=== PATIENT | male | born 1945 | race Caucasian/White ===

== ENCOUNTER 2017-10-14 05:39 | Day surgery (SDC) | payer OTHER ==
[~2017-10-14] VITALS: Ht 185.4 cm; Wt 99.8 kg
--- NOTE | ~2017-10-14 | O ---
[facility] [place] [address] OPERATIVE REPORT Name: KALEY HERMOSILLO Room #: 150-7 [facility]..#: [id number] Admission: 10/14/17 Attend Phys: Familia Pacheco MD Discharge: Date of : 43 Report #: [id number] THIS REPORT FOR: //name// CC: Alexandre Pacheco DATE OF SERVICE: 10/14/2017 MEAT MARKET MANAGER: None. PREOPERATIVE DIAGNOSIS: Bilateral upper lid ptosis with superior visual field defects both eyes. POSTOPERATIVE DIAGNOSIS: Bilateral upper lid ptosis with superior visual field defects both eyes. OPERATION PERFORMED: Bilateral upper lid functional ptosis repair. MEAT MARKET MANAGER: None. ANESTHESIA: Local with IV sedation. COMPLICATIONS: None. INDICATIONS FOR PROCEDURE: This patient has bilateral upper lid ptosis with superior visual field loss both eyes. Visual field testing demonstrates dense superior visual defects. Retesting with the upper lid elevated shows an improvement in visual field loss of over 30% and in excess of 12 degrees. The current procedure is being undertaken in order to improve the patient's visual function. Informed consent was obtained to include but not limited to the risk of loss of vision, bleeding, infection, scarring, failure to improve the problem and need for further surgery, such as adjustment of lid height. DESCRIPTION OF PROCEDURE: The patient was taken to the operating room, where 2% Xylocaine with epinephrine mixed with equal parts of 0.75% Marcaine with Wydase was administered transcutaneously to each upper lid. The patient was then prepped and draped in the usual sterile fashion. An upper lid crease incision was then made bilaterally and the dissection was carried down until the orbital septum was identified. The orbital septum was then cleared and the preaponeurotic fat identified. The levator aponeurosis was then disinserted from the anterior surface of the tarsal plate and dissected [address] [address] OPERATIVE REPORT Name: KALEY HERMOSILLO Room #: 150-7 [facility]#: [id number] Admission: 10/14/17 Attend Phys: Familia Pacheco MD Discharge: Date of : 44 Report #: [id number] free in the avascular Crockett's muscle plane. The aponeurosis was then advanced and reattached to the anterior surface of the tarsal plate with interrupted mattress 6-0 Novafil sutures on each side, adjusting for height and contour. The redundant aponeurosis was then amputated. The incision was then closed with multiple interrupted 6-0 chromic sutures that were used to recreate an upper lid crease. The skin was closed with a running 6-0 plain gut suture. The wound was then cleaned and dressed with ophthalmic antibiotic ointment followed by a Telfa pad. The patient was transported to the recovery area, having tolerated the procedure well with no anesthesia or operative complications being noted. By: 1440 1517 MD otis Castellano
[~2017-10-14 05:39] MED LIST: ALTACE10 M1 PO; ALTACE10 MG PO; ASPIR 8181 MG PO; ASPIRIN EC325 M1 PO; CARVEDILOL12.5 MG PO; COREG PO; COREG25 MG PO; LIPITOR80 MG PO
[2017-10-14 13:04] VITALS: BP 112/71
== END 2017-10-14 15:23 | disposition home or self-care (01) ==
LOC: OR 05:39 → TBA 05:39 → OR 07:59
DX: H02.403 Unspecified ptosis of bilateral eyelids (principal); H53.462 Homonymous bilateral field defects, left side; H53.461 Homonymous bilateral field defects, right side; I10 Essential (primary) hypertension; I21.3 ST elevation (STEMI) myocardial infarction of unspecified site; E78.5 Hyperlipidemia, unspecified; I44.7 Left bundle-branch block, unspecified; I25.10 Atherosclerotic heart disease of native coronary artery without angina pectoris; Z98.890 Other specified postprocedural states; I25.5 Ischemic cardiomyopathy; K21.9 Gastro-esophageal reflux disease without esophagitis
CPT/HCPCS: 50010; 50101; 50386; 50398; 51636; 56528; 56531; 62110; 62850; 70005

== ENCOUNTER 2018-02-20 05:43 | Day surgery (SDC) | payer OTHER ==
[~2018-02-20] VITALS: Ht 182.9 cm; Wt 102.1 kg
--- NOTE | ~2018-02-20 | O ---
[facility] [place] [address] OPERATIVE REPORT Name: KALEY HERMOSILLO Room #: 150-14 [facility]#: [id number] Admission: 02/20/18 Attend Phys: Familia Pacheco MD Discharge: Date of : 43 Report #: [id number] THIS REPORT FOR: //name// CC: TIM Pacheco DATE OF SERVICE: 02/20/2018 SURGEON: Familia Pacheco MD INTAKE NURSE: None. PREOPERATIVE DIAGNOSIS: Bilateral upper lid dermatochalasia with superior visual field defect. POSTOPERATIVE DIAGNOSIS: Bilateral upper lid dermatochalasia with superior visual field defect. OPERATION PERFORMED: Bilateral upper lid functional blepharoplasty. ANESTHESIA: Local with IV sedation. COMPLICATIONS: None. INDICATIONS FOR SURGERY: This patient has acquired upper lid dermatochalasia with superior visual field loss both eyes because of excessive upper lid tissues to include skin and fat. Visual field testing demonstrates dense superior visual defects. Retesting with the upper lid elevated shows an improvement in visual field loss of over 30% and in excess of 12 degrees. The current procedures are undertaken in order to improve the patient's visual function. Informed consent was obtained to include but not limited to the loss of vision, bleeding, infection, scarring, failure to improve the problem and need for further surgery. DESCRIPTION OF OPERATION: The patient was taken to the operating room, where 2% Xylocaine with epinephrine mixed with equal parts of 0.75% Marcaine with Wydase was administered transcutaneously to each upper lid. The patient was then prepped and draped in the usual sterile fashion and a skin-marking pen was then utilized to outline an upper lid crease that was symmetrical on each side. Graefe forceps were then used to quantitate the redundant upper lid skin and it was similarly outlined. The incisions were then made with Saurabh scissors and a skin-muscle flap removed from each side with high-temp cautery. Hemostasis was achieved with the monopolar cautery as it was throughout the case. The [address] [address] OPERATIVE REPORT Name: HERMOSILLOKALEY Room #: 150-[address] [place] [address]..#: [id number] Admission: 02/20/18 Attend Phys: Familia Pacheco MD Discharge: Date of : 44 Report #: [id number] orbital septum was then identified and the central and medial fat pads were inspected. The redundant soft tissue was then sculpted with the monopolar cautery. The upper lid crease was then reformed with tightening of the pretarsal orbicularis muscle. The upper lid crease was then further reformed with multiple interrupted 6-0 chromic sutures. The skin was then closed with a running 6-0 plain gut suture. The wound was then cleaned and dressed with ophthalmic antibiotic ointment and a nonstick dressing. The patient was transported to the recovery area, where cold compresses were applied, having tolerated the procedure well with no anesthetic or operative complications being noted. By: 1045 1146 Familia Pacheco MD /nt
[2018-02-20 08:21] VITALS: BP 118/68
== END 2018-02-20 11:30 | disposition home or self-care (01) ==
LOC: TBA 05:43 → OR 05:43
DX: H02.834 Dermatochalasis of left upper eyelid (principal); H02.831 Dermatochalasis of right upper eyelid; H53.462 Homonymous bilateral field defects, left side; H53.461 Homonymous bilateral field defects, right side; I10 Essential (primary) hypertension; I25.10 Atherosclerotic heart disease of native coronary artery without angina pectoris; I25.5 Ischemic cardiomyopathy; I25.2 Old myocardial infarction; E78.5 Hyperlipidemia, unspecified; K21.9 Gastro-esophageal reflux disease without esophagitis; Z96.653 Presence of artificial knee joint, bilateral; Z79.899 Other long term (current) drug therapy; Z98.890 Other specified postprocedural states; Z79.82 Long term (current) use of aspirin
CPT/HCPCS: 50010; 50101; 50386; 50398; 51636; 56531; 70005

== ENCOUNTER → 2018-09-24 | Outpatient (CLI) | payer OTHER | LOC: MRI 09-23 16:12 → SPEECH 08:37 → MRI 08:37 | DX: G31.9 Degenerative disease of nervous system, unspecified (principal); R13.19 Other dysphagia; R29.6 Repeated falls; Z85.72 Personal history of non-Hodgkin lymphomas ==

== ENCOUNTER → 2018-10-09 | Outpatient (CLI) | payer OTHER | LOC: CAT 10:05 | DX: J34.89 Other specified disorders of nose and nasal sinuses (principal); J32.9 Chronic sinusitis, unspecified; H04.552 Acquired stenosis of left nasolacrimal duct ==

== ENCOUNTER → 2018-11-18 | Outpatient (CLI) | payer OTHER ==
[2018-11-18 11:41] LABS: CREATININE 1.1 mg/dL (0.7-1.3)
== END ==
LOC: LAB 10:53
PROVIDERS: Family Medicine
DX: J32.0 Chronic maxillary sinusitis (principal); J32.1 Chronic frontal sinusitis; Z85.72 Personal history of non-Hodgkin lymphomas

== ENCOUNTER 2019-08-24 16:32 | Inpatient (IN) | payer OTHER ==
[~2019-08-24] VITALS: Ht 185.4 cm; Wt 90.7 kg
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
[~2019-08-24 16:32] MED LIST changes: -ASPIRIN EC325 MG PO; -KLOR-CON 10 ER10 MEQ PO; -LEVO-T100 MCG PO; -METFORMIN HCL500 MG PO; -PERCOCET PO
[2019-08-24 16:40] VITALS: BP 110/62
[2019-08-24] MEDS ORDERED: ASPIRIN EC325 MG PO (16:46)
[2019-08-24] MEDS ORDERED: LEVO-T100 MCG PO (16:47)
[2019-08-24] MEDS ORDERED: METFORMIN HCL500 MG PO (16:47)
[2019-08-24] MEDS ORDERED: KLOR-CON 10 ER10 MEQ PO (16:47)
[2019-08-24 16:55] LABS: ABSOLUTE NEUTROPHILS 5.5 thou/uL (1.4-8.2); BASOPHILS 0.6 % (0.0-2.0); EOSINOPHILS 2.1 % (0.0-3.0); HEMATOCRIT 41.9 % (42.0-52.0); HEMOGLOBIN 14.1 gm/dL (14.0-18.0); LYMPHOCYTES 9.9 % (24.0-44.0); MCH 30.7 pg (26.0-34.0); MCHC 33.7 g/dL (28.0-37.0); MCV 91.3 fL (80.0-100.0); MONOCYTES 7.8 % (1.0-8.0); PLATELET COUNT 232 thou/uL (150-400); POLYS 79.6 % (36.0-66.0); RBC 4.59 mil/uL (4.50-6.00); RDW 14.6 % (10.5-14.5); WBC 6.9 thou/uL (4.0-11.0)
[2019-08-24 17:03] LABS: CALCIUM 8.9 mg/dL (8.5-10.1); CREATININE 1.1 mg/dL (0.7-1.3); POTASSIUM 4.4 mmol/L (3.5-5.1)
[2019-08-24 17:09] LABS: PROTIME 10.7 Seconds (9.3-11.4); TOTAL BILIRUBIN 1.2 mg/dL (0.2-1.0); TOTAL PROTEIN 7.4 g/dL (6.4-8.2)
[2019-08-24 17:11] LABS: URINE BILIRUBIN NEGATIVE (Negative); URINE BLOOD TRACE (Negative); URINE CLARITY CLEAR; URINE COLOR YELLOW; URINE GLUCOSE-RANDOM* NEGATIVE (Negative); URINE KETONES NEGATIVE (Negative); URINE LEUKOCYTES-REFLEX NEGATIVE (Negative); URINE NITRITE-REFLEX NEGATIVE (Negative); URINE PROTEIN (DIPSTICK) NEGATIVE (Negative); URINE SPECIFIC GRAVITY 1.025 (1.005-1.035)
[2019-08-24 17:34] VITALS: BP 110/62
--- NOTE | 2019-08-24 18:39 | NUR ---
SPOKE WITH DR. HOWARD WHO GAVE ORDER FOR PAIN MEDICATION AND REGULAR DIET
[2019-08-24 19:15] VITALS: BP 110/55
[2019-08-24 19:24] VITALS: BP 125/63
[2019-08-24 19:47] VITALS: BP 112/60
[2019-08-25] VITALS (7 sets, daily range): BP systolic 94–111; BP diastolic 47–65
--- NOTE | 2019-08-25 01:16 | NUR ---
PT ADMIT FROM ED UNDER DR HOWARD CARE.PT ARRIVED TO UNIT VIA CART ACCOMPANIED BY THE STAFF.PT A/OX4 W/O ACUTE DISTRESS.DENIES PAIN OR ANY DISCOMFORT.ORIENTED TO RM AND UNIT ACTIVITIES.VSS.ADMISSION ASSESSMENT DOCUMENTED.DR HOWARD NOTIFIED,ORDERS GIVEN.MEDS RECONCILLED.SR/BBB/PVCS ON MONITOR.RA W/O RESP DISTRESS.UP INDEPENDENTLY W/STEADY GAIT.POC IS TO CONTINUE WITH MRI TODAY.WILL CONT TO MONITOR PER POC.
--- NOTE | 2019-08-25 07:41 | NUR ---
ASSESSMENT DOCUMENTED.PT RESTED WELL THROUGH THE NOC.C/O PAIN TO LOWER BACK AND RIBS THAT WAS CONTROLLED WITH PAIN MEDS.NEURO CONSULTED.PT DENIES ANY NEEDS AT THIS TIME.WILL CONT TO MONITOR.
--- NOTE | 2019-08-25 08:37 | EKG ---
[facility] [place] [address] ELECTROCARDIOGRAM REPORT Name: KALEY HERMOSILLO Room #: 217-P ADM IN M.R.#: [id number] Admission: 08/24/19 Attend Phys: Alexandre Araujo MD Discharge: Date of : 44 Report #: [id number] THIS REPORT FOR: cc: Alexandre Araujo MD, Neal A. MD Lundgren, Craig H. MD [facility] ~ THIS REPORT FOR: //name// [facility] ED Test Date: 2019-08-24 Test Time: 16:59:34 Pat Name: KALEY HERMOSILLO Department: Room: 217 Gender: M Maintenance Clerk: jose e : 1945 Requested By: Areli Roche Order Number: [id number] MD: Rodney Mcdonnell Measurements Intervals [place] Rate: 84 P: -9 TN: 237 QRS: -31 QRSD: 162 T: 140 QT: 424 QTc: 502 Interpretive Statements Sinus rhythm Paired ventricular premature complexes Prolonged TN interval Left bundle branch block Compared to ECG 04/24/2011 11:19:00 Ventricular premature complex(es) now present Electronically Signed On 08-25-2019 8:35:43 CDT by Rodney Mcdonnell [email or web address] <ELECTRONICALLY SIGNED> By: Rodney Mcdonnell MD, [facility] 08/25/19 0835 1659 1659 Rodney Mcdonnell MD, FAC /EPI
--- NOTE | 2019-08-25 13:31 | 2DMMODE ---
[facility] [address] [facility] [place] [address] 2 D/M-MODE ECHOCARDIOGRAM Name: KALEY HERMOSILLO Room #: 217-P ADM IN M.R.#: [id number] Admission: 08/24/19 Attend Phys: Alexandre Araujo MD Discharge: Date of : 44 Report #: [id number] THIS REPORT FOR: cc: Alexandre Araujo MD, Neal A. MD Lammoglia, Francisco J. MD ~ APPROVED REPORT Study performed: 08/25/2019 12:22:24 EXAM: Comprehensive 2D, Doppler, and color-flow Echocardiogram Patient Location: Bedside Room #: 217 Status: routine BSA: 2.16 HR: 58 bpm BP: 111/65 mmHg Rhythm: Bradycardia Other Information Study Quality: Adequate Indications CVA/TIA Diabetes CAD Cardiomyopathy Hypertension/HDD Echo Enhancing Agent Indication: Rule out Shunt Agent(s) / Amount(s) Used: Agitated Saline 7 cc 2D Dimensions RVDd: 42.75 mm IVSd: 10.91 (7-11mm) LVOT Diam: 22.08 (18-24mm) LVDd: 63.07 mm PWd: 9.67 (7-11mm) Ascending Ao: 32.17 (22-36mm) LVDs: 56.65 (25-40mm) Aortic Root: 36.13 mm IVC: 18.00 mm Volumes Left Atrial Volume (Systole) Single Plane 4CH: 99.14 mL Single Plane 2CH: 81.80 mL [facility] [address] [place] [address] 2 D/M-MODE ECHOCARDIOGRAM Name: KALEY HERMOSILLO Room #: 217-P [facility] IN ..#: [id number] Admission: 08/24/19 Attend Phys: Alexandre Araujo, Discharge: Date of : 44 Report #: [id number] ESV Index: 45.00 mL/m2 Aortic Valve AoV Peak Tristan.: 0.99 m/s AO Peak Gr.: 3.95 mmHg LVOT Max P.45 mmHg LVOT Max V: 0.78 m/s ISAIAH Vmax: 3.02 cm2 Pulmonary Valve PV Peak Tristan.: 0.73 m/s PV Peak Gr.: 2.11 mmHg Tricuspid Valve TR Peak Tristan.: 2.33 m/s TR Peak Gr.: 21.82 mmHg PA Pressure: 27.00 mmHg Left Ventricle Left ventricle is dilated. There is global hypokinesis of the left ventricle. There is akinesis in the inferior wall. There is normal left ventricular wall thickness. Left ventricular systolic function is severely decreased. LVEF is 25-30%. This study is not technically sufficient to allow evaluation of the LV diastolic function. Right Ventricle Right ventricle is borderline dilated. The right ventricular systolic function is normal. Atria Left atrium is dilated. Interatrial septum is intact without evidence of ASD or PFO. Right atrium is dilated. Aortic Valve The aortic valve is normal in structure. The Aortic valve is sclerotic. No aortic regurgitation is present. There is no aortic valvular stenosis. Mitral Valve The mitral valve is normal in structure. Mild mitral regurgitation. No evidence of mitral valve stenosis. Tricuspid Valve The tricuspid valve is normal in structure. There is trace tricuspid regurgitation. Estimated PAP 27 mmHg. There is no pulmonary hypertension. Pulmonic Valve [facility] [place] [address] 2 D/M-MODE ECHOCARDIOGRAM Name: KALEY HERMOSILLO Jenny Room #: 217-P ADM IN M.R.#: [id number] Admission: 08/24/19 Attend Phys: Alexandre Araujo, Discharge: Date of : 44 Report #: [id number] The pulmonary valve is normal in structure. There is no pulmonic valvular regurgitation. Great Vessels The aortic root is normal in size. IVC is normal in size and collapses >50% with inspiration. Pericardium There is no pericardial effusion. <Conclusion> Left ventricle is dilated. LVEF is 25-30%. There is global hypokinesis of the left ventricle. There is akinesis in the inferior wall. Right ventricle is borderline dilated. Left atrium is dilated. Right atrium is dilated. The aortic valve is normal in structure. The Aortic valve is sclerotic. The mitral valve is normal in structure. Mild mitral regurgitation. The tricuspid valve is normal in structure. There is trace tricuspid regurgitation. Estimated PAP 27 mmHg. There is no pulmonary hypertension. There is no pericardial effusion. Interatrial septum is intact without evidence of ASD or PFO. <ELECTRONICALLY SIGNED> By: Christopher Wilson MD 08/25/19 1329 1329 1329 Christopher Wilson MD /INF
--- NOTE | 2019-08-25 20:40 | NUR ---
RECEIVED PT'S CARE AROUND 0740; PT. ON BED; AOX4; MRI SCREANING PERFORMED; GONE TO MRI & US BEFORE 0800; REQUESTED PRN PAIN MEDICATION BEFORE PROCEDURE; MEDICATION GIVEN; BACK TO FLOOR AFTER 1000; AM MEDICATION GIVEN; SUPPOSITORY GIVEN; PT. ST. ABLE TO HAVE A BM; PHYSICIAN NOTIFIED; ORDERS RECEIVED; PT. ST. ABLE TO HAVE THREE BMs THROUGH THE DAY; SB EVENTS THROUGH THE DAY; NO C/O CP OR SOB; MONITORING; EDUCATES ABOUT FALL PREVENTIONS; ST. UNDERSTANDING; ASSESSMENT CHARGED; FOLLOWING POC; PASSED ON REPORT;
[2019-08-26 00:30] VITALS: BP 104/58
[2019-08-26 04:45] VITALS: BP 105/59
--- NOTE | 2019-08-26 05:45 | NUR ---
ASSUMED CARE OF PATIENT AT 1900. PATIENT REQUESTED PRN PAIN MEDICATION DURING INITIAL ASSESSMENT FOR BACK AND RIB PAIN. ADMINISTERED PRN OXY ORDERED. PATIENT SLEPT WELL THE REMAINDER OF NOC, ONLY GETTING UP TO USE RESTROOM. PATIENT DID REPORT RELIEF OF CONSTIPATION, HAVING HAD MULTIPLE BM THE PREVIOUS SHIFT.
[2019-08-26] MEDS ORDERED: PERCOCET PO (07:28)
[2019-08-26 07:40] VITALS: BP 105/62
--- NOTE | 2019-08-26 10:12 | NUR ---
AAOX4. CALM. COOPERATIVE. ANTICIPATING DISCHARGE AFTER DINNER. LITTLE TODAY. NSR PER TELE. DENIES PAIN. NO S/S CVA. WILL CONTINUE TO FOLLOW CLOSELY.
--- NOTE | 2019-08-26 10:24 | TEE ---
[facility] [place] [address] TRANSESOPHAGEAL ECHOCARDIOGRAM Name: KALEY HERMOSILLO Room #: 217-P ADM IN M.R.#: [id number] Admission: 08/24/19 Attend Phys: Alexandre Araujo MD Discharge: Date of : 43 Report #: [id number] THIS REPORT FOR: cc: Alexandre Araujo MD, Neal A. MD Lundgren, Craig H. MD [facility] ~ APPROVED REPORT Study performed: 08/26/2019 09:43:02 EXAM: Comprehensive 2D, Doppler, and color-flow Echocardiogram Patient Location: Room #: 9 Status: routine BSA: 2.13 HR: 68 bpm BP: 104/57 mmHg Rhythm: NSR Other Information Study Quality: Excellent Indications CVA/TIA Cardiomyopathy Echo Enhancing Agent Indication: Rule out Shunt Agent(s) / Amount(s) Used: Agitated Saline 7 cc Procedure After obtaining informed consent, patient underwent transesophageal echo in the [employer]. Type of Sedation : Conscious Sedation Sedation was administered by Nurse. Sedation was achieved intravenously with: Versed (3 mg) Fentanyl (100 mcg) Transesophageal probe was inserted and advanced into esophagus without difficulty by Rodney Mcdonnell MD. Echo enhancement indication: R/O Septal defect. Echo enhancement agent administered: Agitated Saline The LITTLE was performed without complications. Throughout the procedure, the blood pressure, pulse oximetry, cardiac [facility] [address] [place] [address] TRANSESOPHAGEAL ECHOCARDIOGRAM Name: KALEY HERMOSILLO Room #: 217-P ADM IN M.R.#: [id number] Admission: 08/24/19 Attend Phys: Alexandre Araujo, Discharge: Date of : 43 Report #: [id number] rhythm, and rate were monitored. The patient tolerated the procedure without adverse effects. Recovery from conscious sedation was uneventful and vital signs were stable. Left Ventricle Left ventricle is dilated. There is severe global hypokinesis of the left ventricle. There is normal left ventricular wall thickness. Left ventricular ejection fraction is severely decreased. LVEF is 25-30%. Right Ventricle The right ventricle is normal size. The right ventricular systolic function is normal. Atria Left atrium is dilated. No thrombus is visualized in the left atrium or appendage. No shunting by contrast bubble injection Right atrium is dilated. Aortic Valve The aortic valve is trileaflet, minimally sclerotic Trace aortic regurgitation. There is no aortic valvular stenosis. Mitral Valve The mitral valve is normal in structure. Mild mitral regurgitation. No evidence of mitral valve stenosis. Tricuspid Valve The tricuspid valve is normal in structure. Mild tricuspid regurgitation. Pulmonic Valve The pulmonary valve is normal in structure. There is no pulmonic valvular regurgitation. Great Vessels The aortic root is normal in size. IVC is normal in size and collapses >50% with inspiration. Pericardium There is no pericardial effusion. Critical Notification Physician Notified [facility] [address] [address] TRANSESOPHAGEAL ECHOCARDIOGRAM Name: KALEY HERMOSILLO Room #: 217-P ADM IN M.R.#: [id number] Admission: 08/24/19 Attend Phys: Alexandre Araujo, Discharge: Date of : 43 Report #: [id number] <Conclusion> Left ventricular ejection fraction is severely decreased. Both atria are dilated. No thrombus is visualized in the left atrium or appendage. No shunting by contrast bubble injection The aortic valve is trileaflet, minimally sclerotic. Trace regurgitation, no stenosis. The mitral valve is normal in structure. Mild mitral regurgitation. Mild atherosclerosis in the aorta, no aneurysm. There is no pericardial effusion. <ELECTRONICALLY SIGNED> By: Rodney Mcdonnell MD, FACC 08/26/19 1022 1022 102 Rodney Mcdonnell MD, FACC /INF
[2019-08-26 12:34] VITALS: BP 111/75
[2019-08-26 14:53] VITALS: BP 111/75
== END 2019-08-26 17:20 | disposition home or self-care (01) | DRG 65 ==
LOC: ER 16:32 → 2N 17:32 → EROBS 17:32 → 2N 19:18
PROVIDERS: Nurse Practitioner Family; ADMIT Family Medicine
PROC: B24BZZ4 Ultrasonography of Heart with Aorta, Transesophageal (ICD-10-PCS; principal; 2019-08-26)
DX: I62.9 Nontraumatic intracranial hemorrhage, unspecified (principal); S22.49XA Multiple fractures of ribs, unspecified side, initial encounter for closed fracture; J94.2 Hemothorax; I25.10 Atherosclerotic heart disease of native coronary artery without angina pectoris; I10 Essential (primary) hypertension; E78.5 Hyperlipidemia, unspecified; Z96.653 Presence of artificial knee joint, bilateral; K21.9 Gastro-esophageal reflux disease without esophagitis; I25.5 Ischemic cardiomyopathy; E11.9 Type 2 diabetes mellitus without complications; K59.00 Constipation, unspecified; T50.905A Adverse effect of unspecified drugs, medicaments and biological substances, initial encounter; Z85.72 Personal history of non-Hodgkin lymphomas; Z90.49 Acquired absence of other specified parts of digestive tract; Y92.89 Other specified places as the place of occurrence of the external cause; I25.2 Old myocardial infarction; Z95.5 Presence of coronary angioplasty implant and graft; Z87.891 Personal history of nicotine dependence; X58.XXXA Exposure to other specified factors, initial encounter; Y93.89 Activity, other specified; Y99.8 Other external cause status
CPT/HCPCS: 10081; 10797

== ENCOUNTER → 2019-08-24 | Outpatient (CLI) | payer OTHER ==
[~2019-08-24] MED LIST changes: +ASPIRIN EC325 MG PO; +KLOR-CON 10 ER10 MEQ PO; +LEVO-T100 MCG PO; +METFORMIN HCL500 MG PO; +PERCOCET PO
== END ==
LOC: CAT 15:07
DX: S22.41XA Multiple fractures of ribs, right side, initial encounter for closed fracture (principal); I25.10 Atherosclerotic heart disease of native coronary artery without angina pectoris; J84.10 Pulmonary fibrosis, unspecified; X58.XXXA Exposure to other specified factors, initial encounter; Y93.89 Activity, other specified; Y92.89 Other specified places as the place of occurrence of the external cause

== ENCOUNTER 2019-09-21 16:40 | Emergency (ER) | payer OTHER ==
[~2019-09-21] VITALS: Ht 185.4 cm; Wt 92.5 kg
[~2019-09-21 16:40] MED LIST changes: +ASPIRIN EC325 MG PO; +KLOR-CON 10 ER10 MEQ PO; +LEVO-T100 MCG PO; +METFORMIN HCL500 MG PO; +PERCOCET PO
[2019-09-21 17:53] LABS: ABSOLUTE NEUTROPHILS 4.4 thou/uL (1.4-8.2); BASOPHILS 0.6 % (0.0-2.0); EOSINOPHILS 2.2 % (0.0-3.0); HEMATOCRIT 33.6 % (42.0-52.0); HEMOGLOBIN 11.4 gm/dL (14.0-18.0); LYMPHOCYTES 13.1 % (24.0-44.0); MCH 30.9 pg (26.0-34.0); MCHC 33.9 g/dL (28.0-37.0); MCV 91.1 fL (80.0-100.0); MONOCYTES 9.5 % (1.0-8.0); PLATELET COUNT 290 thou/uL (150-400); POLYS 74.6 % (36.0-66.0); RBC 3.69 mil/uL (4.50-6.00); RDW 15.2 % (10.5-14.5); WBC 5.8 thou/uL (4.0-11.0)
[2019-09-21 18:18] LABS: CALCIUM 8.7 mg/dL (8.5-10.1); CREATININE 1.1 mg/dL (0.7-1.3); POTASSIUM 3.9 mmol/L (3.5-5.1)
[2019-09-21 18:38] LABS: APTT 25.3 Seconds (24.5-32.8); PROTIME 10.3 Seconds (9.3-11.4)
[2019-09-21 20:10] VITALS: BP 114/54
== END 2019-09-21 20:10 | disposition home or self-care (01) ==
LOC: ER 16:40
PROVIDERS: Emergency Medicine
DX: S40.011A Contusion of right shoulder, initial encounter (principal); I10 Essential (primary) hypertension; E78.5 Hyperlipidemia, unspecified; E11.9 Type 2 diabetes mellitus without complications; K21.9 Gastro-esophageal reflux disease without esophagitis; I25.10 Atherosclerotic heart disease of native coronary artery without angina pectoris; Z86.73 Personal history of transient ischemic attack (TIA), and cerebral infarction without residual deficits; Z79.82 Long term (current) use of aspirin; Z79.899 Other long term (current) drug therapy; X58.XXXA Exposure to other specified factors, initial encounter; Y93.89 Activity, other specified; Y92.89 Other specified places as the place of occurrence of the external cause; Y99.8 Other external cause status

== ENCOUNTER → 2020-09-07 | Outpatient (CLI) | payer OTHER ==
[~2020-09-07] VITALS: Ht 182.9 cm; Wt 90.7 kg
[~2020-09-07] MED LIST changes: +JANTOVEN2.5 MG PO; +JANTOVEN5 MG PO
--- NOTE | 2020-09-12 17:06 | PATH ---
[facility] [place] [address] PATHOLOGY RPT PROCEDURE Name: KYRIE DE Room #: REG KILE Ken.#: [id number] Admission: 09/07/20 Date of : 43 Discharge: Report #: [id number] Path Case #: [id number] [facility] Accession Number: [id number] . 01 Material submitted: . PART A: colon - TRANSVERSE COLON POLYP. Modifiers: transverse PART B: colon - ASCENDING COLON POLYP. Modifiers: ascending PART C: sigmoid colon - SIGMOID COLON POLYP PART D: rectum - RECTAL COLON POLYP . 01 Clinical history: . EGD COLONOSCOPY DYSPHAGIA,SCREENING . 02 Diagnosis: A. Polyp x2, transverse colon polyp, endoscopic biopsy: - Tubular adenoma identified in multiple fragments sampled. - Negative for high-grade dysplasia. . B. Polyp x4, ascending colon polyp, endoscopic biopsy: - Tubular adenoma identified in multiple fragments sampled. - Negative for high-grade dysplasia. . C. Polyp x3, sigmoid colon polyp, endoscopic biopsy: - Tubular adenoma identified in two fragments without any high-grade dysplasia. - One fragment showing inflamed hyperplastic polyp without any dysplasia. . D. Polyp, rectal polyp, endoscopic biopsy: - Tubular adenoma. - Negative for high-grade dysplasia. (IUV:flori; 09/12/2020) S 09/12/2020 1448 Local . 02 Electronically signed: . Stephanie Ge MD, Pathologist NPI- [id number] . 01 Gross description: . A. Received in formalin labeled "Kyrie De, transverse colon polyp" and labeled on the requisition as "transverse colon polyp snare BX x2" are 2 garza-brown soft tissue fragments measuring in aggregate 0.8 x 0.5 x 0.1 cm. The specimen is submitted entirely in A1. . B. Received in formalin labeled "Kyrie De, ascending colon polyp x2" and labeled on the requisition as "ascending colon polyp BX x4" [place] [address] PATHOLOGY RPT PROCEDURE Name: KYRIE DE [id number] Admission: 09/07/20 Date of : 43 Discharge: Report #: [id number] Path Case #: [id number] multiple garza-brown soft tissue fragments measuring in aggregate 2.0 x 0.4 x 0.1 cm. The specimen is submitted entirely in B1. . C. Received in formalin labeled "De, Kyrie, sigmoid colon polyp biopsy" and labeled on the requisition as "sigmoid colon polyp BX hot snare x3" are multiple garza-brown soft tissue fragments measuring in aggregate 1.8 x 0.8 x 0.3 cm. The specimen is submitted entirely in C1. . D. Received in formalin labeled "De, Kyrie, rectal colon polyp biopsy" and labeled on the requisition as "rectal colon polyp BX x1" is a garza-brown soft tissue fragment measuring 0.3 x 0.2 x 0.1 cm. The specimen is submitted entirely in D1. ([facility]; 09/10/2020) [facility] 09/10/2020 0811 Local . 02 Pathologist provided ICD-10: D12.3, D12.2, D12.5, K63.5, D12.8 . 02 CPT . 131233, 219641, 641384, 170309 Specimen Comment: A courtesy copy of this report has been sent to [phone], [phone] Specimen Comment: [id number] Specimen Comment: Report sent to / DR HOWARD Performed at: [address] [facility], [place], [place] [id number] MD Lei Mix MD Phone: [phone] Performed at: [address] [facility] [address] [id number] MD Stephanie Ge MD Phone: [phone]
--- NOTE | 2020-09-14 08:07 | P ---
[facility] [place] [address] PROCEDURE REPORT Name: KALEY HERMOSILLO Room #: REG Poly Canales#: [id number] Admission: 09/07/20 Attend Phys: Charly Boogie Discharge: Date of : 43 Report #: [id number] THIS REPORT FOR: cc: Alexandre Araujo MD, Neal A. MD McElhinney, Christian C. MD ~ DOC #: [id number] cc: MD Charly Cota MD DATE OF SERVICE: 09/07/2020 PROCEDURE PERFORMED: Colonoscopy with polypectomies. INDICATIONS FOR PROCEDURE: The patient is a 75-year-old male who presents for routine screening colonoscopy. He has never had a colonoscopy in the past. No family history of colon cancer. Bowel movements have been normal. DESCRIPTION OF PROCEDURE: The risks and benefits of the procedure were explained to the patient, those risks including but not limited to bleeding, perforation and the risk of sedation. He understood these risks and gave informed consent. Sedation was given using propofol per anesthesia. Next, a digital rectal exam was initially performed, which was normal. Next, using a standard Olympus colonoscope, the scope was placed in the patient's anus and advanced under direct vision to the cecum. The overall prep was good. The cecum and ileocecal valve were normal in appearance. In the ascending colon, a total of 4 polyps were noted. They ranged in size from 4 mm to 6 mm. The 3 smaller polyps were removed by cold forceps, the larger by cold snare. There were 2 polyps in the transverse colon. The largest was 8 and removed by cold snare. The smaller was 4 and removed by cold forceps. In the sigmoid colon, a total of 3 polyps were noted, 1 removed by cold forceps, it was 4 mm. The larger that were 6-8 mm were removed by snare cautery. In the rectum, a 3 mm sessile polyp was noted and also removed with cold forceps. On retroflexion, no abnormalities were noted. The scope was then withdrawn and the procedure terminated. The patient tolerated the procedure well. IMPRESSION: 1. Multiple polyps as described above. 2. Otherwise, normal colonoscopy. RECOMMENDATIONS: 1. Await biopsy results. 2. Repeat colonoscopy in 5 years. Thank you for allowing me to participate in his care. [address] [address] PROCEDURE REPORT Name: JAIMEEKALEYBia FOUNTAIN Room #: KASSIE FRANCY Canales#: [id number] Admission: 09/07/20 Attend Phys: Charly Boogie Discharge: Date of : 43 Report #: [id number] Charly Truong MD CCM/HANNAHK <ELECTRONICALLY SIGNED> By: Charly Truong MD 06/806 0954 53 Charly Truong MD /vladimir
--- NOTE | 2020-09-14 08:07 | P ---
[facility] [place] [address] PROCEDURE REPORT Name: KALEY HERMOSILLO Room #: REG FRANCY Canales#: [id number] Admission: 09/07/20 Attend Phys: Charly Boogie Discharge: Date of : 43 Report #: [id number] THIS REPORT FOR: cc: Alexandre Araujo MD, Neal A. MD McElhinney, Christian C. MD ~ DOC #: [id number] cc: MD Charly Cota MD DATE OF SERVICE: 09/07/2020 PROCEDURE PERFORMED: Upper endoscopy with esophageal dilation. INDICATIONS FOR PROCEDURE: The patient is a 75-year-old male with a history of dysphagia. He has had a previous history of lymphoma and radiation to the neck region. He has difficulty with both solids and liquids. Apparently at one time underwent a speech pathology evaluation and they gave him potential tips for helping swallowing. He believes he underwent an upper endoscopy years ago with dilation, but cannot remember if this was helpful. He denies any heartburn symptoms. DESCRIPTION OF PROCEDURE: The risks and benefits of the procedure were explained to the patient, those risks including but not limited to bleeding, perforation and the risk of sedation. He understood these risks and gave informed consent. Sedation was given using propofol per anesthesia. Next, using a standard Olympus upper endoscope, the scope was placed in the patient's mouth and advanced under direct vision through the esophagus, stomach and into the second portion of the duodenum. The larynx was normal in appearance. The esophagus was normal throughout. There was no evidence of a stricture. No esophagitis was noted. The GE junction was normal. Overall, the gastric mucosa was normal. The pylorus was normal and patent. The duodenal bulb, first and second portion were all normal. The scope was then brought back up into the patient's stomach and a Savary guidewire was inserted through the scope, leaving the wire in place as the scope was then withdrawn. Next, a 51-Albanian Savary dilation of the esophagus was then performed without difficulty. The wire and dilator were removed. The scope was reintroduced into the patient's stomach. There was no evidence of mucosal tear after dilation. The scope was then withdrawn and the procedure terminated. The patient tolerated the procedure well. IMPRESSION: Normal upper endoscopy, no evidence of stricture, status post esophageal dilation as described above. RECOMMENDATIONS: 1. Observe the patient post-dilation. [facility] [address] [place] [address] PROCEDURE REPORT Name: KALEY HERMOSILLO Room #: REG CLPoly Canales#: [id number] Admission: 09/07/20 Attend Phys: Charly Boogie Discharge: Date of : 43 Report #: [id number] 2. If no improvement, consider possible repeat video swallow with speech pathologist or also consider esophageal manometry. Plan is also for colonoscopy today as the patient has never had a screening colonoscopy in the past. Thank you for allowing me to participate in his care. Charly Truong MD CCM/WILLARD <ELECTRONICALLY SIGNED> By: Charly Truong MD 09/14/20 0807 0920 1950 Charly Truong MD /nt
== END | disposition home or self-care (01) ==
LOC: GI 08:31
PROVIDERS: ATTEND Specialist
DX: Z12.11 Encounter for screening for malignant neoplasm of colon (principal); D12.2 Benign neoplasm of ascending colon; D12.3 Benign neoplasm of transverse colon; D12.8 Benign neoplasm of rectum; D12.5 Benign neoplasm of sigmoid colon; R13.10 Dysphagia, unspecified; I10 Essential (primary) hypertension; E11.9 Type 2 diabetes mellitus without complications; I25.10 Atherosclerotic heart disease of native coronary artery without angina pectoris; I25.5 Ischemic cardiomyopathy; I25.2 Old myocardial infarction; Z98.890 Other specified postprocedural states; Z79.899 Other long term (current) drug therapy; Z86.73 Personal history of transient ischemic attack (TIA), and cerebral infarction without residual deficits; Z87.891 Personal history of nicotine dependence; Z90.49 Acquired absence of other specified parts of digestive tract; Z95.0 Presence of cardiac pacemaker; Z85.72 Personal history of non-Hodgkin lymphomas; Z96.653 Presence of artificial knee joint, bilateral
CPT/HCPCS: 62110; 62900

== ENCOUNTER → 2020-10-27 | Outpatient (CLI) | payer OTHER ==
[~2020-10-27] MED LIST changes: +TYLENOL325 M1 PO; +VANACOF DM LIQ240 ML PO
== END | disposition home or self-care (01) ==
LOC: GI 10-24 10:41
PROVIDERS: ATTEND Internal Medicine Gastroenterology
DX: R13.10 Dysphagia, unspecified (principal)

== ENCOUNTER 2020-11-01 13:54 | Emergency (ER) | payer OTHER ==
[~2020-11-01] VITALS: Ht 182.9 cm; Wt 81.7 kg
[~2020-11-01 13:54] MED LIST changes: -TYLENOL325 M1 PO; -VANACOF DM LIQ240 ML PO
[2020-11-01] MEDS ORDERED: VANACOF DM LIQ240 ML PO (14:27)
[2020-11-01] MEDS ORDERED: TYLENOL325 M1 PO (14:27)
[2020-11-01 14:55] VITALS: BP 110/84
== END 2020-11-01 15:13 | disposition home or self-care (01) ==
LOC: ER 13:54
DX: U07.1 COVID-19 (principal); I25.10 Atherosclerotic heart disease of native coronary artery without angina pectoris; I25.2 Old myocardial infarction; I10 Essential (primary) hypertension; I42.9 Cardiomyopathy, unspecified; E11.9 Type 2 diabetes mellitus without complications; Z98.890 Other specified postprocedural states; Z90.49 Acquired absence of other specified parts of digestive tract; Z79.84 Long term (current) use of oral hypoglycemic drugs; Z79.899 Other long term (current) drug therapy

== ENCOUNTER 2020-11-08 12:10 | Inpatient (IN) | payer OTHER ==
[~2020-11-08] VITALS: Ht 182.9 cm; Wt 89.4 kg
[~2020-11-08 12:10] MED LIST changes: +TYLENOL325 M1 PO; +VANACOF DM LIQ240 ML PO
[2020-11-08 12:21] VITALS: BP 89/59
[2020-11-08 12:54] LABS: ABSOLUTE NEUTROPHILS 10.9 thou/uL (1.4-8.2); BASOPHILS 0.1 % (0.0-2.0); HEMATOCRIT 36.1 % (42.0-52.0); HEMOGLOBIN 12.8 gm/dL (14.0-18.0); LYMPHOCYTES 2.3 % (24.0-44.0); MCH 32.2 pg (26.0-34.0); MCHC 35.4 g/dL (28.0-37.0); MCV 91.2 fL (80.0-100.0); MONOCYTES 4.3 % (1.0-8.0); PLATELET COUNT 257 thou/uL (150-400); POLYS 93.3 % (36.0-66.0); RBC 3.96 mil/uL (4.50-6.00); RDW 14.8 % (10.5-14.5); WBC 11.7 thou/uL (4.0-11.0)
[2020-11-08 13:10] LABS: ANION GAP 10 mmol/L (7-16); BUN 20 mg/dL (7-18); CALCIUM 8.3 mg/dL (8.5-10.1); CHLORIDE 97 mmol/L (98-107); CO2 25 mmol/L (21-32); CREATININE 1.2 mg/dL (0.7-1.3); GLUCOSE 280 mg/dL (74-106); POTASSIUM 4.6 mmol/L (3.5-5.1); SODIUM 132 mmol/L (136-145)
[2020-11-08 13:20] LABS: ALBUMIN 3.1 g/dL (3.4-5.0); MAGNESIUM 2.1 mg/dL (1.8-2.4); SGOT 18 U/L (15-37); SGPT 19 U/L (30-65); TOTAL BILIRUBIN 0.9 mg/dL (0.2-1.0); TOTAL PROTEIN 7.2 g/dL (6.4-8.2); TROPONIN-I <0.06 ng/mL (<0.06)
[2020-11-08 15:48] LABS: URINE BILIRUBIN NEGATIVE (Negative); URINE BLOOD NEGATIVE (Negative); URINE CLARITY CLEAR; URINE COLOR YELLOW; URINE GLUCOSE-RANDOM* 2+ (Negative); URINE KETONES NEGATIVE (Negative); URINE LEUKOCYTES-REFLEX NEGATIVE (Negative); URINE NITRITE-REFLEX NEGATIVE (Negative); URINE PROTEIN (DIPSTICK) NEGATIVE (Negative); URINE SPECIFIC GRAVITY <= 1.005 (1.005-1.035); URINE UROBILINOGEN 0.2 E.U./dl (0.2-1.0)
[2020-11-09 02:36] LABS: HEMATOCRIT 34.6 % (42.0-52.0); MCH 31.5 pg (26.0-34.0); MCHC 34.6 g/dL (28.0-37.0); MCV 91.2 fL (80.0-100.0); RBC 3.79 mil/uL (4.50-6.00); RDW 14.6 % (10.5-14.5); WBC 8.6 thou/uL (4.0-11.0)
[2020-11-09 04:28] VITALS: BP 110/61
[2020-11-09 05:07] LABS: ALBUMIN 2.6 g/dL (3.4-5.0); CALCIUM 7.6 mg/dL (8.5-10.1); CREATININE 1.1 mg/dL (0.7-1.3); DIRECT BILIRUBIN 0.1 mg/dL (<0.1-0.2); POTASSIUM 4.5 mmol/L (3.5-5.1); TOTAL BILIRUBIN 0.4 mg/dL (0.2-1.0); TOTAL PROTEIN 6.1 g/dL (6.4-8.2)
--- NOTE | 2020-11-09 07:14 | NUR ---
TOOK OVER CARE FROM NEREIDA FORD AT THIS TIME
--- NOTE | 2020-11-09 07:47 | EKG ---
[place] [address] + [facility] [place] [address] ELECTROCARDIOGRAM REPORT Name: KALEY HERMOSILLO Room #: 170-8 ADM IN M.R.#: [id number] Admission: 11/08/20 Attend Phys: Alexandre Araujo MD Discharge: Date of : 43 Report #: [id number] [facility] ED Test Date: 2020-11-08 Test Time: 12:43:07 Pat Name: KALEY HERMOSILLO Department: Room: 170 Gender: M Vaccine Customer Representative: silviano : 1945 Requested By: Gm Salinas Order Number: [id number] MD: Aj Gibbons Measurements Intervals [place] Rate: 80 P: 35 RI: 124 QRS: 178 QRSD: 139 T: 41 QT: 432 QTc: 499 Interpretive Statements Atrial-ventricular dual-paced complexes No further analysis attempted due to paced rhythm Compared to ECG 08/24/2019 16:59:34 Sinus rhythm no longer present Ventricular premature complex(es) no longer present First degree AV block no longer present Left bundle-branch block no longer present Electronically Signed On 11-09-2020 7:47:04 CDT by Aj Gibbons [email or web address] <ELECTRONICALLY SIGNED> By: Aj Gibbons MD, [facility] 11/09/20 0747 1243 1243 Aj Gibbons MD, [facility] /EPI
--- NOTE | 2020-11-09 13:52 | NUR ---
PT MOVED TO [facility] ED AT THIS TIME. REPORT GIVEN TO NEREIDA BURROUGHS
--- NOTE | 2020-11-09 17:43 | NUR ---
75 year old male presents to the ED on 11-08-20 for complaints of syncope. Pt reports that he "keeps passing out" at home. Pt was diagnosed with COVID 7 days prior to ED visit and per the patient's spouse he has been satting at home in the mid to upper 80's. Pt was seen by his PCP Dr. Araujo on 11-08 and was sent to the ED for full work-up. The patient per ED Triage assessment is not vaccinated and positive per ED ID NOW. The patient has been admitted with Covid pneumonia, B-cell non-Hodgkin's lymphoma, syncope and hypotension. At present on 11-09-20 the patient is on RA. The patient last discharged without need from on August 26 2019 to home. The patient lists friend of Mirela Leiva at [phone] as person of notification. will continue to follow for discharge needs as plan of care by medical team is reviewed for discharge need.
[2020-11-09 23:52] VITALS: BP 109/58
[2020-11-10 03:29] LABS: ALBUMIN 2.5 g/dL (3.4-5.0); ANION GAP 10 mmol/L (7-16); BUN 20 mg/dL (7-18); CALCIUM 7.7 mg/dL (8.5-10.1); CHLORIDE 103 mmol/L (98-107); CO2 25 mmol/L (21-32); DIRECT BILIRUBIN < 0.1 mg/dL (<0.1-0.2); GLUCOSE 220 mg/dL (74-106); POTASSIUM 4.2 mmol/L (3.5-5.1); SGOT 18 U/L (15-37); SGPT 22 U/L (16-63); SODIUM 138 mmol/L (136-145); TOTAL BILIRUBIN 0.4 mg/dL (0.2-1.0); TOTAL PROTEIN 5.6 g/dL (6.4-8.2)
[2020-11-10 09:19] VITALS: BP 126/75
--- NOTE | 2020-11-10 10:35 | HC ---
[facility] [place] [address] CONSULTATION Name: KALEY HERMOSILLO Room #: 170-17 ADM IN M.R.#: [id number] Admission: 11/08/20 Attend Phys: Alexandre Araujo MD Discharge: Date of : 43 Report #: [id number] THIS REPORT FOR: cc: Alexandre Araujo MD, Neal A. MD Barry, Joseph W. MD ~ DATE OF SERVICE: 11/09/2020 INFECTIOUS DISEASE CONSULTATION ATTENDING PHYSICIAN: Dr. Araujo. REASON FOR EVALUATION: COVID-19 infection. The patient presented with low saturations and syncopal episodes. 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 He complains of weakness. He denies significant dyspnea. On evaluation, chest x-ray did not show acute process. ProBNP level was elevated at 3700. CTA chest PE protocol, no evidence of PE, acwn-pk-swrjeytv multifocal infiltrates suspicious for COVID-19, cardiomegaly. Urinalysis was unremarkable. Lactic acid 1.8. Procalcitonin 0.14. Blood culture had been collected and sterile thus far. He is not experiencing fevers since his admission, nor has he required supplemental oxygen at this point. He was started on therapy with azithromycin, ceftriaxone, Remdesivir. ALLERGIES: None known. CURRENT MEDICATIONS: Described above, famotidine, enoxaparin, levothyroxine, sliding scale insulin, carvedilol, dexamethasone, albuterol. He received ivermectin as well. PAST MEDICAL HISTORY: History of non-Hodgkin's lymphoma, has known diabetes mellitus complicated by coronary artery disease, hypertension, ischemic cardiomyopathy, reflux. SOCIAL HISTORY: Former smoker, fairly regular ethanol, no illicit drug use. FAMILY HISTORY: Noncontributory. REVIEW OF SYSTEMS: Somewhat limited. He is perhaps mildly encephalopathic. Really denies any significant pain. No pulmonary or gastrointestinal related complaints. [facility] [address] [place] [address] CONSULTATION Name: KALEY HERMOSILLO Room #: 170-17 [facility]#: [id number] Admission: 11/08/20 Attend Phys: Alexandre Araujo MD Discharge: Date of : 43 Report #: [id number] PHYSICAL EXAMINATION: GENERAL: He appears chronically ill and undernourished, slightly confused, xuxj-wq-lauupsbd distress. VITAL SIGNS: Temperature from earlier afebrile, pulse 71, respirations 12, blood pressure 128/71. SKIN: Warm, dry. HEENT: Normocephalic. Extraocular muscles intact. He is not requiring supplemental oxygen. NECK: Supple. LUNGS: Few scattered coarse breath sounds. HEART: Regular with ectopy. I do not appreciate a murmur. ABDOMEN: Mildly distended, generally soft. No peritoneal signs. Nontender. EXTREMITIES: No cyanosis. GENITOURINARY AND RECTAL: Deferred. LABORATORY DATA: Most recent electrolytes, sodium 134, potassium 4.5, chloride 100, bicarbonate is 21, anion gap of 13, BUN and creatinine 19 and , glucose was 305. LFTs unremarkable. Albumin 26, total protein 6.1, estimated GFR of 65. CBC: White count of 8.6, H&H 12.0 and 34.6, platelets of 266. Procalcitonin 0.12. Lactic acid 1.8. Blood cultures are sterile thus far. Urinalysis unremarkable. CT without evidence of pulmonary embolus. ASSESSMENT AND PLAN: COVID-19 infection with radiographic evidence of pneumonitis. At this point, he is not experiencing significant respiratory distress. In addition to that, has known widespread vasculopathy including coronary artery disease, has cardiomyopathy, may well be a component of congestive heart failure. He has been started empirically on combination antibacterials. I think this is probably reasonable. Given his disease burden, he is certainly at risk for clinical deterioration. We will try to collect a sputum on him and do some other diagnostic testing. He has been started on Remdesivir in the event that he improves. I do not know that we need to extend it for 5 days at this point. We will monitor expectantly. He still remains tenuous situation. <ELECTRONICALLY SIGNED> By: Sandeep Wilson MD 11/10/20 1035 1658 0024 Sandeep Wilson MD /nt
--- NOTE | 2020-11-10 12:24 | 2DMMODE ---
[facility] [address] [place] [address] 2 D/M-MODE ECHOCARDIOGRAM Name: KALEY HERMOSILLO Room #: 170-17 ADM IN M.R.#: [id number] Admission: 11/08/20 Attend Phys: Alexandre Araujo MD Discharge: Date of : 43 Report #: [id number] THIS REPORT FOR: cc: Alexandre Araujo MD, Neal A. MD Santiago, Patrick MD [facility] ~ APPROVED REPORT Study performed: 11/10/2020 11:47:55 EXAM: Limited 2D, Doppler, and color-flow Echocardiogram Patient Location: ER Status: routine BSA: 2.13 HR: 84 bpm BP: 74/37 mmHg Rhythm: Pacemaker Other Information Study Quality: Good Indications Hypotension. COVID + Hx: ISCM, CAD, PPM/Defib. 2D Dimensions IVSd: 13.86 (7-11mm) LVDd: 64.15 mm PWd: 11.40 (7-11mm) LVDs: 57.92 (25-40mm) Aortic Valve AoV Peak Tristan.: 1.08 m/s AO Peak Gr.: 4.67 mmHg Pulmonary Valve PV Peak Tristan.: 0.86 m/s PV Peak Gr.: 2.97 mmHg Tricuspid Valve TR Peak Tristan.: 2.57 m/s RAP Estimate: 5.00 mmHg TR Peak Gr.: 26.46 mmHg PA Pressure: 31.00 mmHg Left Ventricle [facility] [address] [place] [address] 2 D/M-MODE ECHOCARDIOGRAM Name: KALEY HERMOSILLO Room #: 170-17 ADM IN M.R.#: [id number] Admission: 11/08/20 Attend Phys: Alexandre Araujo, Discharge: Date of : 43 Report #: [id number] Left ventricle is moderately dilated. Mild basal septal hypertrophy is present. Left ventricular systolic function is severely decreased. LVEF is 20-25%. Right Ventricle The right ventricle is normal size. The right ventricular systolic function is normal. Device lead is present in the right ventricle. Atria Left atrium is dilated. The right atrium size is normal. Aortic Valve Aortic valve is mildly calcified. Trace aortic regurgitation. There is no aortic valvular stenosis. Mitral Valve The mitral valve is normal in structure. Mild mitral regurgitation. No evidence of mitral valve stenosis. Tricuspid Valve The tricuspid valve is normal in structure. Mild tricuspid regurgitation. Estimated PAP is 30mmHg. Pulmonic Valve The pulmonary valve is normal in structure. Great Vessels IVC is normal in size and collapses >50% with inspiration. Pericardium Small anterior pericardial effusion. <Conclusion> Left ventricle moderately dilated with mild basal septal hypertrophy Global hypokinesis more prominent in anterior wall, ejection fraction 20-25% Grade 1 diastolic dysfunction Normal right ventricle size/function Left atrium mildly dilated Color-flow Doppler study was performed of the aortic/mitral/tricuspid/pulmonary valve Normal aortic valve structure and function Mild mitral valve insufficiency Mild tricuspid valve insufficiency [facility] [address] [place] [address] 2 D/M-MODE ECHOCARDIOGRAM Name: KALEY HERMOSILLO ESSIE Room #: 170-17 ADM IN M.R.#: [id number] Admission: 11/08/20 Attend Phys: Alexandre Araujo, Discharge: Date of : 43 Report #: [id number] Pulmonary systolic pressure estimated 30 mmHg Small posterior pericardial effusion Normal aortic root size <ELECTRONICALLY SIGNED> By: Aj Gibbons MD, FACC 11/10/20 1224 1224 1224 Aj Gibbons MD, FACC /INF
[2020-11-10 21:36] VITALS: BP 112/61
[2020-11-10 22:00] VITALS: BP 141/90
--- NOTE | 2020-11-11 01:55 | NUR ---
RECIEVED PT FROM ED , UPON ARRIVAL TO UNIT ASSESSMENT COMPLETED ,DATA BASE COMPLETED . DISCUSSED POC , PT VERBALIZED UNDERSTANDING , CARDIC MONITOR SHOWS AV PACED . DRY COUGH NOTED.
[2020-11-11 04:00] VITALS: BP 133/79
[2020-11-11] MEDS ORDERED: CARVEDILOL12.5 MG PO ×2 (07:46→07:55)
[2020-11-11 07:58] VITALS: BP 142/92
[2020-11-11 08:55] LABS: ALBUMIN 2.5 g/dL (3.4-5.0); CALCIUM 7.9 mg/dL (8.5-10.1); DIRECT BILIRUBIN 0.1 mg/dL (<0.1-0.2); PHOSPHORUS 2.8 mg/dL (2.6-4.7); TOTAL BILIRUBIN 0.7 mg/dL (0.2-1.0); TOTAL PROTEIN 5.6 g/dL (6.4-8.2)
--- NOTE | 2020-11-11 11:06 | NUR ---
INITIAL ASSESSMENT/DISCHARGE NOTE: [facility] reviewed chart and spoke with nursing. Pt was admitted from home due to COVID pneumonia. Pt placed in Enhanced Isolation. Pt is afebrile and not requiring O2. Per attending physician, pt is medically stable for discharge. Discharge orders for HH completed. [facility] spoke with pt via phone. Introduced role of SW. Pt reports he lives at home with family. Prior to admission, pt was independent with ADLs. No use of DME. No hx of HH services or post-acute placement. Pt's PCP is Dr. Araujo. [facility] discussed recommendation for HH services. Pt denies needing HH. SW explained to pt that if he gets home and changes his mind and needs HH, to contact his PCP's office to coordinate. Pt verbalized understanding. [facility]PPE placed this info in pt's discharge summary. Pt does live in [place], [place]. [facility] updated pt's nurse and attending physician. Pt states he will have transportation home when discharged. No additional SW needs identified at this time, but is available to assist should needs arise.
[2020-11-11 11:11] VITALS: BP 142/92
[2020-11-11 11:46] VITALS: BP 109/75
== END 2020-11-11 15:44 | disposition home or self-care (01) | DRG 177 ==
LOC: ER 12:10 → 3W 16:00 → EROBS 16:00 → 3W 11-10 21:23
PROVIDERS: Emergency Medicine; ADMIT Family Medicine; ATTEND Family Medicine
PROC: XW033E5 Introduction of Remdesivir Anti-infective into Peripheral Vein, Percutaneous Approach, New Technology Group 5 (ICD-10-PCS; principal; 2020-11-08)
DX: U07.1 COVID-19 (principal); J12.82 Pneumonia due to coronavirus disease 2019; C85.10 Unspecified B-cell lymphoma, unspecified site; N17.9 Acute kidney failure, unspecified; G93.40 Encephalopathy, unspecified; M31.9 Necrotizing vasculopathy, unspecified; I25.10 Atherosclerotic heart disease of native coronary artery without angina pectoris; E78.5 Hyperlipidemia, unspecified; Z96.653 Presence of artificial knee joint, bilateral; I10 Essential (primary) hypertension; E11.9 Type 2 diabetes mellitus without complications; I25.5 Ischemic cardiomyopathy; I95.9 Hypotension, unspecified; E03.9 Hypothyroidism, unspecified; Z90.49 Acquired absence of other specified parts of digestive tract; I25.2 Old myocardial infarction; Z86.73 Personal history of transient ischemic attack (TIA), and cerebral infarction without residual deficits; Z95.0 Presence of cardiac pacemaker; Z87.891 Personal history of nicotine dependence
CPT/HCPCS: 10879

== ENCOUNTER → 2021-02-20 | Outpatient (CLI) | payer OTHER ==
[~2021-02-20] VITALS: Ht 182.9 cm; Wt 90.7 kg
[~2021-02-20] MED LIST changes: +LANOXIN125 MCG PO; +METFORMIN HCL500 M1 PO; +SPIRONOLACTONE25 MG PO
[2021-02-20 11:16] LABS: INR 1.1; PROTIME 11.9 Seconds (10.5-12.1)
== END | disposition home or self-care (01) ==
LOC: GI 06:05
PROVIDERS: Anesthesiology; ATTEND Internal Medicine Gastroenterology
DX: R13.10 Dysphagia, unspecified (principal); Z20.822 Contact with and (suspected) exposure to COVID-19; I10 Essential (primary) hypertension; E11.9 Type 2 diabetes mellitus without complications; I25.10 Atherosclerotic heart disease of native coronary artery without angina pectoris; E78.5 Hyperlipidemia, unspecified; I25.2 Old myocardial infarction; I25.5 Ischemic cardiomyopathy; Z98.890 Other specified postprocedural states; Z79.899 Other long term (current) drug therapy; Z87.891 Personal history of nicotine dependence; Z96.653 Presence of artificial knee joint, bilateral; Z86.73 Personal history of transient ischemic attack (TIA), and cerebral infarction without residual deficits
CPT/HCPCS: 62110; 62900